=== PATIENT | female | born 1990 | race Caucasian/White ===

== ENCOUNTER 2018-08-05 06:03 | Day surgery (SDC) | payer OTHER ==
[2018-08-04 11:26] VITALS: BMI 45.2
[2018-08-05 07:03] LABS: BHCG - Serum Negative (NEGATIVE); Pregs Control Background? CLEAR/WHITE (CLR/WHITE); Pregs Control Bar Appear? YES (CONTROL BAR)
[2018-08-05] MEDS ORDERED: Midazolam HCl 2 mg/2 ml Vial ONE ×2 (07:38→08:15)
[2018-08-05] MEDS ORDERED: Lidocaine 1% w/Epinephrine 1:100K 20 ML VIAL ONE (07:56)
[2018-08-05] MEDS ORDERED: Ciprofloxacin 0.2% Otic 1 DROP CON ONE (08:07)
[2018-08-05] MEDS ORDERED: Fentanyl 100 MCG/2 ML VIAL ONE (08:15)
[2018-08-05] MEDS ORDERED: PROPOFOL 20 ML ONE (08:15)
[2018-08-05] MEDS ORDERED: Bacitracin Zinc Ointment 30 gm TUBE ONE (08:31)
--- NOTE | 2018-08-06 12:36 | OP ---
DATE OF PROCEDURE: 08/05/2018 PREOPERATIVE DIAGNOSES: 1. Right tympanic membrane perforation. 2. Right conductive hearing loss. POSTOPERATIVE DIAGNOSES: 1. Right tympanic membrane perforation. 2. Right conductive hearing loss. PROCEDURE PERFORMED: Right myringoplasty with fat graft. ESTIMATED BLOOD LOSS: 0 mL. COMPLICATIONS: None. ANESTHESIA: TIVA. DESCRIPTION OF PROCEDURE: The patient was taken to the operating room and placed supine on the table. TIVA anesthesia was obtained by the anesthesia staff. Following this, injection of 1% lidocaine with 1:100,000 epinephrine was made in the posterior aspect of the right earlobe as well as into the bony-cartilaginous junction of the external auditory canal on the right side. The tympanic membrane perforation was visualized. A 5% perforation was seen. The middle ear mucosa was noted to be healthy today. The edges of the perforation were rimmed with the Lopez needle and were removed using cup forceps. Following this, a small incision was made in the posterior aspect of the earlobe, and an appropriate size fat graft was harvested. The skin was then closed using chromic gut stitches. Following this, the operating microscope was used, and the fat was placed within the tympanic membrane perforation in a dumbbell fashion. The patient tolerated the procedure well. Job ID: [id number]
== END 2018-08-05 10:25 | disposition home or self-care (01) ==
LOC: SDC 06:03
PROVIDERS: ATTEND Otolaryngology Plastic Surgery within the Head & Neck
PROC: 09R777Z Replacement of Right Tympanic Membrane with Autologous Tissue Substitute, Via Natural or Artificial Opening (ICD-10-PCS; principal; 2018-08-05)
DX: H72.91 Unspecified perforation of tympanic membrane, right ear (principal); H90.11 Conductive hearing loss, unilateral, right ear, with unrestricted hearing on the contralateral side; H61.23 Impacted cerumen, bilateral; J30.1 Allergic rhinitis due to pollen; J30.81 Allergic rhinitis due to animal (cat) (dog) hair and dander; Z79.51 Long term (current) use of inhaled steroids; Z79.899 Other long term (current) drug therapy; Z91.09 Other allergy status, other than to drugs and biological substances; Z98.890 Other specified postprocedural states
CPT/HCPCS: 36415; 84703; 85014; J2001; J2250; J2704; J3010

== ENCOUNTER 2019-06-03 10:02 | Outpatient (CLI) | payer OTHER | END 2019-06-03 10:03 | disposition home or self-care (01) | LOC: CTENTCT 10:02 | PROVIDERS: ATTEND Otolaryngology Plastic Surgery within the Head & Neck | DX: J32.9 Chronic sinusitis, unspecified (principal) | CPT/HCPCS: 70486 ==

== ENCOUNTER 2019-08-23 04:28 | Outpatient (CLI) | payer OTHER ==
[2019-08-23 10:22] LABS: Hemoglobin 14.9 g/dL (12.0-16.0); Mean Corpuscular HGB CONC 32.6 g/dL (32.0-36.0); Mean Corpuscular Volume 85.9 fL (78.0-98.0); Mean Platelet Volume 8.6 fL (7.4-10.4); Platelet Count 292 thou/uL (130-400); Red Blood Cell (RBC) Count 5.31 mill/uL (4.20-5.40); White Blood Cell (WBC) Count 10.2 thou/uL (4.8-10.8)
[2019-08-23 11:01] LABS: BHCG - Serum Negative (NEGATIVE); Pregs Control Background? CLEAR/WHITE (CLR/WHITE); Pregs Control Bar Appear? YES (CONTROL BAR)
[2019-08-24 14:00] LABS: SARS-CoV-2 MS2 Positive; SARS-CoV-2 N Gene Negative; SARS-CoV-2 S Gene Negative; SARS-CoV-2 orf1ab Negative
== END 2019-08-23 04:29 | disposition home or self-care (01) ==
LOC: LABBT 04:28
PROVIDERS: ATTEND Otolaryngology Plastic Surgery within the Head & Neck
DX: Z01.812 Encounter for preprocedural laboratory examination (principal); Z11.59 Encounter for screening for other viral diseases; H72.91 Unspecified perforation of tympanic membrane, right ear; J32.0 Chronic maxillary sinusitis; J32.1 Chronic frontal sinusitis; J32.2 Chronic ethmoidal sinusitis; J32.3 Chronic sphenoidal sinusitis; J34.3 Hypertrophy of nasal turbinates
CPT/HCPCS: 84703; 85027; 87635; U0003

== ENCOUNTER 2019-08-25 06:47 | Day surgery (SDC) | payer OTHER ==
[2019-08-25] MEDS ORDERED: AFRIN NASAL MIST 15 ML BOT ONE ×2 (08:34→08:59)
[2019-08-25] MEDS ORDERED: Midazolam HCl 2 mg/2 ml Vial ONE (08:54)
[2019-08-25] MEDS ORDERED: Ondansetron PF 4 MG/2 ML Vial ONE ×2 (08:54→11:02)
[2019-08-25] MEDS ORDERED: Fentanyl 100 MCG/2 ML VIAL ONE ×2 (08:54→10:29)
[2019-08-25] MEDS ORDERED: Lidocaine 1% w/Epinephrine 1:100K 20 ML VIAL ONE (08:59)
[2019-08-25] MEDS ORDERED: PROPOFOL 200 MG/20 ML VIAL ONE (11:02)
[2019-08-25] MEDS ORDERED: Rocuronium Bromide 10 MG/ML (10ML VIAL) ONE (11:02)
[2019-08-25] MEDS ORDERED: Succinylcholine Chloride 20 MG/ML 10 ml SYRINGE FS ONE (11:02)
[2019-08-25] MEDS ORDERED: Dexamethasone 20 MG/5 ML VIAL ONE (11:02)
[2019-08-25] MEDS ORDERED: Lidocaine 1% PF 5 ML VIAL ONE (11:02)
[2019-08-25] MEDS ORDERED: HYDROcodone/Acetaminophen 5/325 mg Tablet ONE (14:27)
--- NOTE | 2019-08-26 08:56 | OP ---
DATE OF PROCEDURE: 08/25/2019 PREOPERATIVE DIAGNOSES: 1. Chronic rhinosinusitis. 2. Bilateral inferior turbinate hypertrophy. 3. Bilateral eustachian tube dysfunction. 4. Right tympanic membrane perforation. 5. Right conductive hearing loss. PROCEDURES PERFORMED: 1. Bilateral endoscopic sinus surgery, total ethmoidectomies with sphenoidotomies including removal of tissue. 2. Bilateral endoscopic sinus surgery, maxillary antrostomies. 3. Bilateral inferior turbinate submucosal resection. 4. Right fat graft myringoplasty. ESTIMATED BLOOD LOSS: 20 mL. COMPLICATIONS: None. ANESTHESIA: GETA. DESCRIPTION OF PROCEDURE: Following this, 1% lidocaine with 1:100,000 epinephrine were injected into the middle turbinates and lateral nasal wall bilaterally. Following this, the 0-degree endoscope was used to visualize the middle turbinate and the middle turbinate was medially fractured using a [place] elevator. Following this, the uncinate process was identified and was examined. The uncinate process was noted to be inflamed and laterally displaced bilaterally. Following this, a ball-ended probe was used to anteriorly fracture the uncinate process bilaterally. Following this, the 0-degree microdebrider and the up-biting [place] forceps were used to remove the uncinate process bilaterally. Following this, the natural maxillary sinus ostia was identified with the 0-degree endoscope and the ball-ended probe. The natural maxillary ostia were then widened using a 40-degree microdebrider and the straight [place] forceps bilaterally. Following this, the ethmoidal bulla was identified bilaterally. A 0-degree microdebrider was used to puncture the ethmoidal bulla on its medial and inferior aspect bilaterally. Following this, the 0-degree microdebrider and the up-biting [place] forceps were used to remove the ethmoidal bulla. Following this, the grand lamella was identified posterior to this area and was punctured using the 0-degree microdebrider bilaterally. Following this, the ethmoidal cells were opened from the posterior to the anterior using the 0-degree microdebrider, the 40-degree microdebrider and the up-biting [place] forceps bilaterally. Following this, the 45-degree endoscope and the 40-degree microdebrider blade were used to further remove the anterior ethmoidal cells to the level of the frontal sinus recess bilaterally. Following this, a 0-degree endoscope was advanced into the previous ethmoidectomies, where the anterior wall of the sphenoid sinus was identified. Using the 0-degree microdebrider, a sphenoidotomy was created bilaterally and the sphenoid sinus ostia was then widened in a medial and inferior direction by removal of bone and tissue using the microdebrider and sphenoid sinus punches. Following this, the inferior turbinates were punctured on the anterior and inferior aspect with submucosal microdebrider and submucosal resection was performed of the anterior and inferior portions of the inferior turbinates bilaterally. Following this, nasal cavity was irrigated. NasoPore packing was placed in the middle meatus. Following this, the operating microscope was used to visualize the right tympanic membrane. The thickened and irritated perforation, which was approximately 10% located in the inferior central quadrant, was then rimmed using a Lopez needle and cup forceps. An incision was made in the posterior aspect of the right earlobe and a fat graft was harvested. The incision was then closed using a chromic gut stitch. The fat was then trimmed of any debris and was placed in a dumbbell fashion within the tympanic membrane perforation. The patient tolerated the procedure well. Job ID: [id number]
== END 2019-08-25 15:00 | disposition home or self-care (01) ==
LOC: SDC 06:47
PROVIDERS: ATTEND Otolaryngology Plastic Surgery within the Head & Neck
PROC: 099Q8ZZ Drainage of Right Maxillary Sinus, Via Natural or Artificial Opening Endoscopic (ICD-10-PCS; principal; 2019-08-25)
PROC: 09TL8ZZ Resection of Nasal Turbinate, Via Natural or Artificial Opening Endoscopic (ICD-10-PCS; principal; 2019-08-25)
PROC: 099X8ZZ Drainage of Left Sphenoid Sinus, Via Natural or Artificial Opening Endoscopic (ICD-10-PCS; principal; 2019-08-25)
PROC: 09U777Z Supplement Right Tympanic Membrane with Autologous Tissue Substitute, Via Natural or Artificial Opening (ICD-10-PCS; principal; 2019-08-25)
PROC: 09TV8ZZ Resection of Left Ethmoid Sinus, Via Natural or Artificial Opening Endoscopic (ICD-10-PCS; principal; 2019-08-25)
PROC: 099R8ZZ Drainage of Left Maxillary Sinus, Via Natural or Artificial Opening Endoscopic (ICD-10-PCS; principal; 2019-08-25)
PROC: 099W8ZZ Drainage of Right Sphenoid Sinus, Via Natural or Artificial Opening Endoscopic (ICD-10-PCS; principal; 2019-08-25)
PROC: 09TU8ZZ Resection of Right Ethmoid Sinus, Via Natural or Artificial Opening Endoscopic (ICD-10-PCS; principal; 2019-08-25)
DX: J32.4 Chronic pansinusitis (principal); J34.3 Hypertrophy of nasal turbinates; H72.91 Unspecified perforation of tympanic membrane, right ear; H69.80 Other specified disorders of Eustachian tube, unspecified ear; J34.2 Deviated nasal septum; H90.11 Conductive hearing loss, unilateral, right ear, with unrestricted hearing on the contralateral side; Z79.899 Other long term (current) drug therapy; Z91.048 Other nonmedicinal substance allergy status
CPT/HCPCS: J1100; J2250; J2405; J2704; J3010